=== PATIENT | male | born 1985 | race African-American/Black ===

== ENCOUNTER 2017-09-25 21:49 | Inpatient (IN) ==
[2017-09-26] MEDS ORDERED: DILTIAZEM INJ 100 MG in SODIUM CHLORIDE 0.9% 100 ML IV SCH (00:30)
[2017-09-26] MEDS ORDERED: MORPHINE 4 MG/1 ML VIAL IV PRN (00:36)
[2017-09-26] MEDS ORDERED: traZODone 50 MG TABLET PO PRN (00:36)
[2017-09-26] MEDS ORDERED: ONDANSETRON 4 MG/2 ML VIAL IV PRN (00:36)
[2017-09-26 00:41] LABS: Basophils % 0.4 % (0.0-0.8); Eosinophils % 0.2 % (0.00-10.9); Hematocrit 47.6 VOL% (42.0-52.0); Hemoglobin 16.8 GM/DL (14.0-18.0); Immature Granulocytes % 0.2 %; Immature Granulocytes Absolute 0.01 #; Lymphocytes # 1.4 10*3/uL (1.4-4.0); Lymphocytes % 30.9 % (21.2-54.2); Mean Corpuscular HGB Conc 35.3 GM/DL (32-36); Mean Corpuscular Hemoglobin 30 PG (27-34); Mean Platelet Volume 9.8 FL (9.6-12.0); Monocytes # 0.4 10*3/uL (0.11-0.8); Monocytes % 8.6 % (1.7-12.7); Neutrophils # 2.8 10*3/uL (1.4-7.4); Neutrophils % 59.7 % (38.7-73.9); Platelet Count 213 T/CUMM (130-400); Red Cell Distribution Width 12.7 % (9.3-17.3); White Blood Count 4.6 T/CUMM (4-12)
[2017-09-26] MEDS ORDERED: LORazepam 2 MG/1 ML VIAL IV PRN (00:41)
[2017-09-26] MEDS ORDERED: SIMETHICONE CHEW 125 MG TABLET PO PRN (00:51)
[2017-09-26] MEDS ORDERED: SIMETHICONE CHEW 125 MG TABLET PO SCH (01:00)
[2017-09-26 01:18] LABS: Alanine Aminotransferase 40 U/L (16-61); Albumin 4.4 G/DL (3.4-5.0); Alkaline Phosphatase 73 U/L (45-117); Aspartate Amino Transferase 39 U/L (0-37); Blood Urea Nitrogen 17 MG/DL (7-18); Calcium 9.3 MG/DL (8.5-10.1); Cholesterol 199 MG/DL (50-200); Glucose 109 MG/DL (74-106); HDL Cholesterol 79 MG/DL (40-60); Osmolality,Calculated 272.1 MOS/KG (273-304); Potassium 3.6 MMOL/L (3.5-5.1); Risk Ratio 2.52; Sodium 135 MMOL/L (136-145); Total Protein 7.8 G/DL (6.4-8.3); Triglycerides 79 MG/DL (2-150); Troponin I Only < 0.015 NG/ML (0.00-0.045); VLDL CHOLESTEROL 15.8 MG/DL
[2017-09-26] MEDS: SODIUM CHLORIDE 0.9% 1,000 ML IV SCH ×2 (01:46→15:49)
[2017-09-26] MEDS: ENOXAPARIN 80 MG/0.8 ML SYRINGE SUBCUT SCH ×2 (01:46→14:10)
[2017-09-26] MEDS: FAMOTIDINE INJ 40 MG in SODIUM CHLORIDE 0.9% 100 ML IV SCH (01:47)
[2017-09-26 02:46] LABS: Barbiturates Screen,Urine Negative (Negative); Benzodiazepines Screen,Urine Negative (Negative); Cannabinoid Screen,Urine Negative (Negative); Opiate Screen,Urine Negative (Negative); Phencyclidine Screen,Urine Negative (Negative)
[2017-09-26] MEDS ORDERED: cefTRIAXone 1,000 MG in SYRINGE 1 EACH IV SCH (05:00)
[2017-09-26] MEDS ORDERED: DOCUSATE SODIUM 100 MG CAPSULE PO SCH (09:00)
[2017-09-26] MEDS: THIAMINE 100 MG TABLET PO SCH (12:34)
[2017-09-26] MEDS: ASPIRIN CHEW 81 MG TABLET PO SCH (12:34)
[2017-09-26] MEDS: POLYETHYLENE GLYCOL POWDER 17 GM PACK PO SCH (12:35)
[2017-09-26] MEDS: FOLIC ACID 1 MG TABLET PO SCH (12:35)
[2017-09-26] MEDS: METOPROLOL TARTRATE 50 MG TABLET PO SCH ×2 (12:35→21:48)
[2017-09-26] MEDS: MULTIVITAMIN LIQUID (CENTRUM) 60 ML BOTTLE PO SCH (12:35)
[2017-09-26] MEDS ORDERED: METOPROLOL SUCCINATE XL 25 MG TABLET PO ONE (22:17)
[2017-09-27] MEDS: FAMOTIDINE INJ 40 MG in SODIUM CHLORIDE 0.9% 100 ML IV SCH (01:10)
[2017-09-27] MEDS: ENOXAPARIN 80 MG/0.8 ML SYRINGE SUBCUT SCH (03:05)
[2017-09-27 08:28] VITALS: BP 129/78
[2017-09-27] MEDS: ASPIRIN CHEW 81 MG TABLET PO SCH (09:00)
[2017-09-27] MEDS: POLYETHYLENE GLYCOL POWDER 17 GM PACK PO SCH (09:00)
[2017-09-27] MEDS: FOLIC ACID 1 MG TABLET PO SCH (09:00)
[2017-09-27] MEDS: THIAMINE 100 MG TABLET PO SCH (09:00)
[2017-09-27] MEDS: MULTIVITAMIN LIQUID (CENTRUM) 60 ML BOTTLE PO SCH (09:00)
[2017-09-27] MEDS ORDERED: METOPROLOL SUCCINATE XL 50 MG TABLET PO SCH (09:00)
[2017-09-27] MEDS: SODIUM CHLORIDE 0.9% 1,000 ML IV SCH (13:13)
== END 2017-09-27 13:14 | disposition home or self-care (01) | DRG 310 ==
LOC: N.TELES 23:32
PROVIDERS: ADMIT Internal Medicine Cardiovascular Disease; ATTEND Internal Medicine Cardiovascular Disease

== ENCOUNTER 2018-05-28 16:29 | Observation (INO) ==
[2018-05-28] MEDS ORDERED: DILTIAZEM 25 MG/5 ML VIAL IV ONE ×2 (20:07→20:15)
[2018-05-28] MEDS ORDERED: dilTIAZem Drip 125 MG/125 ML PREMIX IV SCH (20:10)
[2018-05-28] MEDS ORDERED: ONDANSETRON 4 MG/2 ML VIAL IV PRN (21:40)
[2018-05-28] MEDS ORDERED: ZALEPLON 5 MG CAPSULE PO PRN (21:40)
[2018-05-28] MEDS ORDERED: ACETAMINOPHEN 325 MG TABLET PO PRN (21:40)
[2018-05-28] MEDS ORDERED: SIMETHICONE CHEW 125 MG TABLET PO PRN (21:56)
[2018-05-28] MEDS ORDERED: LORazepam 2 MG/1 ML VIAL IV PRN ×2 (21:58→22:12)
[2018-05-28] MEDS ORDERED: ENOXAPARIN 40 MG/0.4 ML SYRINGE SUBCUT SCH (22:00)
[2018-05-28] MEDS ORDERED: hydrOXYzine HCL 25 MG TABLET PO PRN (22:10)
[2018-05-28 22:22] LABS: Basophils % 0.7 % (0.0-0.8); Eosinophils % 0.3 % (0.00-10.9); Hematocrit 44.7 VOL% (42.0-52.0); Hemoglobin 15.5 GM/DL (14.0-18.0); Immature Granulocytes % 0.3 %; Immature Granulocytes Absolute 0.02 #; Lymphocytes # 1.5 10*3/uL (1.4-4.0); Lymphocytes % 23.9 % (21.2-54.2); Mean Corpuscular HGB Conc 34.7 GM/DL (32-36); Mean Corpuscular Hemoglobin 29 PG (27-34); Mean Corpuscular Volume 83.4 FL (87-102); Mean Platelet Volume 9.8 FL (9.6-12.0); Monocytes # 0.5 10*3/uL (0.11-0.8); Monocytes % 8.2 % (1.7-12.7); Neutrophils % 66.6 % (38.7-73.9); Platelet Count 204 T/CUMM (130-400); Red Blood Count 5.36 MC/CUMM (3.8-5.5); Red Cell Distribution Width 12.8 % (9.3-17.3); White Blood Count 6.1 T/CUMM (4-12)
[2018-05-28] MEDS ORDERED: [UNRECOGNIZED DRUG - OTHER] IV SCH (22:30)
[2018-05-28] MEDS ORDERED: THIAMINE IV SCH (22:30)
[2018-05-28] MEDS ORDERED: MULTIVITAMIN IV SCH (22:30)
[2018-05-28] MEDS ORDERED: FOLIC ACID IV SCH (22:30)
[2018-05-28 22:44] LABS: Albumin 4.1 G/DL (3.4-5.0); Bilirubin,Total 1.5 MG/DL (0.2-1.0); Osmolality,Calculated 270.8 MOS/KG (273-304); Total Protein 7.7 G/DL (6.4-8.3)
[2018-05-28 22:51] LABS: Thyroid Stimulating Hormone 4.02 uIU/ml (0.358-3.74)
[2018-05-28] MEDS: ASCORBIC ACID 500 MG TABLET PO SCH (22:58)
[2018-05-28] MEDS: chlordiazePOXIDE 25 MG CAPSULE PO SCH (22:58)
[2018-05-29 00:52] LABS: Apearance,Urine CLEAR (Clear); Bilirubin,Urine Negative (Negative); Blood, Urine Negative (Negative); Glucose,Urine (UA) Negative (Negative); Ketones,Urine 80 mg/dL (Negative); Mucus,Urine Occasional /LPF (Occasional); Nitrite,Urine Negative (Negative); Protein,Urine Negative; Urine Color Yellow (Yellow); Urine Specific Gravity 1.029 (1.001-1.035); Urine Urobilinogen < 2.0 EU/DL (0.2-1.0); WBC,Urine <1 /HPF (0-6)
[2018-05-29 00:58] LABS: Barbiturates Screen,Urine Negative (Negative); Benzodiazepines Screen,Urine Negative (Negative); Cannabinoid Screen,Urine Negative (Negative); Opiate Screen,Urine Negative (Negative); Phencyclidine Screen,Urine Negative (Negative)
[2018-05-29] MEDS: chlordiazePOXIDE 25 MG CAPSULE PO SCH ×2 (06:08→11:26)
[2018-05-29] MEDS: ASCORBIC ACID 500 MG TABLET PO SCH (08:43)
[2018-05-29] MEDS ORDERED: MULTIVITAMIN (CENTRUM) TABLET PO SCH (09:00)
[2018-05-29] MEDS ORDERED: THIAMINE 100 MG TABLET PO SCH (09:00)
[2018-05-29] MEDS ORDERED: PANTOPRAZOLE 40 MG TABLET PO SCH (09:00)
[2018-05-29] MEDS ORDERED: FOLIC ACID 1 MG TABLET PO SCH (09:00)
[2018-05-29] MEDS ORDERED: ASPIRIN CHEW 81 MG TABLET PO SCH (09:00)
[2018-05-29] MEDS ORDERED: METOPROLOL SUCCINATE XL 50 MG TABLET PO SCH ×2 (09:00→21:00)
[2018-05-29 13:39] LABS: Troponin I < 0.015 NG/ML (0.00-0.045)
[2018-05-29] MEDS ORDERED: AMIODARONE 200 MG TABLET PO SCH (14:30)
[2018-05-29 14:59] VITALS: BP 140/83
[2018-05-29] MEDS ORDERED: chlordiazePOXIDE 25 MG CAPSULE PO SCH (22:30)
[2018-05-30] MEDS ORDERED: chlordiazePOXIDE 25 MG CAPSULE PO SCH (22:30)
== END 2018-05-29 17:15 | disposition home or self-care (01) ==
LOC: N.CC 19:50 → INTOOBSV 19:50 → SUATTDRO 19:50 → N.CC 19:58
PROVIDERS: ADMIT Internal Medicine; ATTEND Internal Medicine